=== PATIENT | male | born 2000 | race African-American/Black ===

== ENCOUNTER 2025-07-30 12:28 | Emergency (ER) | payer OTHER ==
[~2025-07-30] VITALS: Ht 170.2 cm; Wt 110.9 kg
[2025-07-30] MEDS ORDERED: ALBU2.5V10 INH (12:40)
[2025-07-30] MEDS ORDERED: CEPH500C PO (13:42)
[2025-07-30 13:47] VITALS: BP 134/66; TEMP 97.8; O2SAT 99
== END 2025-07-30 13:49 | disposition home or self-care (01) ==
LOC: M ED 12:28
DX: L03.012 Cellulitis of left finger (principal)